=== PATIENT | female | born 1970 | race Caucasian/White ===

== ENCOUNTER 2017-08-16 09:22 | Emergency (ER) | payer BC ==
[~2017-08-16] VITALS: Ht 157.5 cm; Wt 56.7 kg
[2017-08-16] MEDS ORDERED: PENICILLIN V P500 MG PO (09:34)
[2017-08-16] MEDS ORDERED: HYDROCODONE-AP1 EAC6 PO (09:34)
== END 2017-08-16 09:47 | disposition home or self-care (01) ==
LOC: ER 09:22
DX: K08.89 Other specified disorders of teeth and supporting structures (principal); R22.0 Localized swelling, mass and lump, head